=== PATIENT | female | born 1975 | race Caucasian/White ===

== ENCOUNTER → 2019-07-17 08:58 | Outpatient (CLI) | payer OTHER, SELFPAY ==
--- NOTE | ~2019-07-17 | MR_ITS ---
EXAMINATION: MR pituitary wo/w con DATE: 07/17/2019 10:14 INDICATION: Hyperprolactinemia. TECHNIQUE: Magnetic resonance imaging (MRI) of the brain and brainstem was performed without and with 14 mL MultiHance intravenous contrast. Whole-brain sequences included sagittal T1-weighted FSE, axia l diffusion-weighted FS EPI, axial T2*-weighted GRE, axial T2-weighted FLAIR Propeller, and axial T2- weighted Propeller. Small nqzre-rr-dcyd sequences included sagittal and coronal T1-weighted FSE cente red at the pituitary. Postcontrast sequences included small uuvob-rb-skab coronal T1-weighted FSE in a time course and sagittal T1-weighted FSE and whole-brain axial T1-weighted FSE. Apparent diffusion coefficient (ADC) maps were created. COMPARISON: None. FINDINGS: The pituitary is normal in size with height of 4 mm and concave superior margin. The infund ibulum is at midline. There is no intracranial hemorrhage, acute infarction, or abnormal intracranial mass lesion. The ventricles are normal in size. The paranasal sinuses are clear. The orbits are norm al. The mastoid air cells are normal. IMPRESSION: 1. Normal brain. Normal pituitary. Reviewed, dictated and finalized at location A. [employer]
[2019-07-17 09:54] LABS: Blood Urea Nitrogen 11 mg/dL (8-26); Estimated Glomerular Filt Rate > 60
== END ==
PROVIDERS: PCP Family Medicine; Visit Provider Obstetrics & Gynecology
DX: E22.1 Hyperprolactinemia (principal)
CPT/HCPCS: 70553; A9577

== ENCOUNTER → 2020-05-15 11:21 | Outpatient (CLI) | payer OTHER, SELFPAY ==
--- NOTE | ~2020-05-15 | XR_ITS ---
XR foot RT min 3V 05/15/2020 11:46 INDICATION: Right foot pain PROCEDURE: 4 views right foot COMPARISON: No prior studies for comparison. FINDINGS: Fracture, dislocation or subluxation is not identified. Lisfranc joint is intact. The soft tissues appear within normal limits. No foreign bodies are identified. IMPRESSION: 1: NO ACUTE BONE OR JOINT ABNORMALITY IDENTIFIED. Reviewed, dictated and finalized at location B. [employer]
== END ==
PROVIDERS: Visit Provider Physician Assistant
DX: S99.921A Unspecified injury of right foot, initial encounter (principal)
CPT/HCPCS: 73630